=== PATIENT | female | born 1960 | race Caucasian/White ===

== ENCOUNTER 2020-04-17 15:04 | Emergency (ER) | payer SELFPAY ==
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
== END 2020-04-17 15:36 | disposition home or self-care (01) ==
LOC: JVIRT 15:04
DX: Z11.59 Encounter for screening for other viral diseases (principal)
CPT/HCPCS: Q3014-GT; U0003